=== PATIENT | male | born 1970 | race Caucasian/White ===

== ENCOUNTER 2022-05-09 09:32 | Emergency (ER) | payer BC ==
[2022-05-09] MEDS ORDERED: Sodium Chloride 0.9% 10 ML Syringe FLUSH PRN ×2 (09:52→10:11)
[2022-05-09] MEDS ORDERED: Sodium Chloride 0.9% 1,000 ML IV STA (09:52)
[2022-05-09] MEDS ORDERED: fentaNYL 100 MCG/2 ML SDV IVPUSH ONE (09:53)
[2022-05-09] MEDS ORDERED: Sodium Chloride 0.9% 50 ML IV ONE (10:11)
[2022-05-09] MEDS ORDERED: Iopamidol 612 MG/ML 100 ML Bottle IV PRN (10:11)
[2022-05-09 10:26] LABS: ESTIMATED GFR 73 mL/min (>60); TROPONIN I HIGH SENSITIVITY 19.1 pg/mL (<=60.3)
== END 2022-05-09 11:56 | disposition home or self-care (01) ==
LOC: JP.ED 09:32
DX: K57.20 Diverticulitis of large intestine with perforation and abscess without bleeding (principal); M19.90 Unspecified osteoarthritis, unspecified site; Z87.891 Personal history of nicotine dependence
CPT/HCPCS: 36415; 74177; 80053; 81001; 83605; 83690; 84484; 85025; 96361; 96374; 99284; J3010; J3490; J7030; Q9967